=== PATIENT | female | born 1985 | race Caucasian/White ===

== ENCOUNTER → 2017-06-30 | Outpatient (CLI) | payer MEDICAID | LOC: HPND 08:48 | DX: O35.1XX0 Maternal care for (suspected) chromosomal abnormality in fetus, not applicable or unspecified (principal); Z82.79 Family history of other congenital malformations, deformations and chromosomal abnormalities | CPT/HCPCS: 76811 ==

== ENCOUNTER → 2017-08-20 | Outpatient (CLI) | payer MEDICAID | LOC: HPND 08:46 | DX: O43.892 Other placental disorders, second trimester (principal); O35.2XX0 Maternal care for (suspected) hereditary disease in fetus, not applicable or unspecified; O99.332 Smoking (tobacco) complicating pregnancy, second trimester | CPT/HCPCS: 76816 ==

== ENCOUNTER → 2017-09-16 | Outpatient (CLI) | payer MEDICAID | LOC: HPND 08:28 | DX: O40.2XX0 Polyhydramnios, second trimester, not applicable or unspecified (principal); O43.892 Other placental disorders, second trimester; O35.2XX0 Maternal care for (suspected) hereditary disease in fetus, not applicable or unspecified; O99.332 Smoking (tobacco) complicating pregnancy, second trimester | CPT/HCPCS: 76816 ==